=== PATIENT | male | born 1950 | race Caucasian/White ===

== ENCOUNTER 2022-08-26 06:26 | Day surgery (SDC) | payer MEDICARE, SELFPAY ==
--- NOTE | 2022-08-25 10:57 | P.CONAN_ITS ---
HPI - Anesthesia Eval Consult details Narrative: 71yo M for Upper Endoscopy and Colonoscopy FOR[facility]LY [facility] Past Medical History Medical History (Updated 08/25/22 @ 10:03 by Jenni Torres RN) GERD (gastroesophageal reflux disease) History of Meyer's esophagus History of COPD History of elevated PSA Hx of hyperlipidemia Normal esophagogastroduodenoscopy (EGD) Surgical History Surgical History (Updated 08/25/22 @ 10:03 by Jenni Torres RN) Hx of colonoscopy Hx of fusion of cervical spine Hx of knee surgery Social History Social History Patient Tobacco Use Status: Former Tobacco user Are you DNR?: No Advance Directives: No Advance Directives Information Provided: Yes Nutrition Risks: No Nutritional Risk Meds Allergies Allergy/AdvReac Type Severity Reaction Status Date / Time No Known Allergies Allergy Verified 08/25/22 09:51 Home Medications Medication Instructions Recorded Confirmed Last Taken Type Prilosec OTC 08/25/22 Unknown History Vesicare 08/25/22 08/25/22 Unknown History atorvastatin 10 mg tablet 10 mg PO DAILY 08/25/22 08/25/22 Unknown History dutasteride 0.5 mg capsule 0.5 mg PO DAILY 08/25/22 08/25/22 Unknown History piroxicam 20 mg capsule 20 mg PO DAILY 08/25/22 08/25/22 Unknown History tamsulosin 0.4 mg capsule 0.4 mg PO DAILY 08/25/22 08/25/22 Unknown History Fish Oil 08/26/22 08/16/22 History Exam Exam Date and Time: August 25, 2022 1057 Assessment and Plan Assessment Anesthesia Assessment: Chart Reviewed
[2022-08-26 06:45] VITALS: BP 139/81; PULSE 68; RESP 18; TEMP 36.1; O2SAT 97; BMI 25.5
[2022-08-26] MEDS: Lactated Ringers 1,000 ML 100 ML IVCONT (07:04)
--- NOTE | 2022-08-26 07:25 | MHC.SHP ---
Pre-Procedural Eval Section A Date of Service: 08/26/22 The patient is an INPATIENT: No Changes since office visit: No Cold of Flu in the past 2 weeks, No New Medical Problems, No Changes in Medication and No Patient answered all questions The History & Physical has been completed within 30 days and I have reviewed it.: Yes Section B Chief Complaint: screening for malignant neoplasm, dysphagia Allergies: Allergies Allergy/AdvReac Type Severity Reaction Status Date / Time No Known Allergies Allergy Verified 08/25/22 09:51 Plan I have reviewed the history and physical and performed a pertinent physical examination on my patient. No changes have occurred unless specified. Time Spent With Patient Time: Total time managing care of this patient today ____ minutes.
--- NOTE | 2022-08-26 07:51 | P.CONAN_ITS ---
HPI - Anesthesia Eval Consult details Narrative: EGD and colon for screening REPLACED BY [facility] Past Medical History Medical History (Updated 08/25/22 @ 10:03 by Jenni Torres RN) GERD (gastroesophageal reflux disease) History of Meyer's esophagus History of COPD History of elevated PSA Hx of hyperlipidemia Normal esophagogastroduodenoscopy (EGD) Family History Family history of problems with anesthesia: No Surgical History Surgical History (Updated 08/25/22 @ 10:03 by Jenni Torres RN) Hx of colonoscopy Hx of fusion of cervical spine Hx of knee surgery History of Problems with Anesthesia: No Social History Social History Patient Tobacco Use Status: Former Tobacco user Are you DNR?: No Advance Directives: No Advance Directives Information Provided: Yes Nutrition Risks: No Nutritional Risk Meds Allergies Allergy/AdvReac Type Severity Reaction Status Date / Time No Known Allergies Allergy Verified 08/25/22 09:51 Active Medications: Current Medications Albuterol Sulfate (Albuterol Sulfate (0.083%) 2.5 Mg/3 Ml Vial.Neb) 2.5 mg INHALE ONCE PRN PRN Reason: Shortness of Breath/Wheezing Lactated Ringer's (Lr) 1,000 mls @ 100 mls/hr IVCONT .Q10H CARLOS Last Admin: 08/26/22 07:04 Dose: 100 mls/hr Home Medications Medication Instructions Recorded Confirmed Last Taken Type Prilosec OTC 08/25/22 Unknown History Vesicare 08/25/22 08/25/22 Unknown History atorvastatin 10 mg tablet 10 mg PO DAILY 08/25/22 08/25/22 Unknown History dutasteride 0.5 mg capsule 0.5 mg PO DAILY 08/25/22 08/25/22 Unknown History piroxicam 20 mg capsule 20 mg PO DAILY 08/25/22 08/25/22 Unknown History tamsulosin 0.4 mg capsule 0.4 mg PO DAILY 08/25/22 08/25/22 Unknown History Fish Oil 08/26/22 08/16/22 History Exam Exam Date and Time: August 26, 2022 0751 Height,Weight and Vital Signs: Height 6 ft Weight 85.275 kg Last Vital Signs Temp 97 F 08/26/22 06:45 Pulse 68 08/26/22 06:45 Resp 18 08/26/22 06:45 BP 139/81 08/26/22 06:45 Pulse Ox 97 08/26/22 06:45 O2 Del Method Room Air 08/26/22 06:45 Airway Mallampati Class: II TM Dist: >3cm Neck ROM: Full Loose/Missing/Broken Teeth: No Heart: rr Lungs: cta Assessment and Plan Assessment Anesthesia Assessment: Anesthesia Plan Discussed and Chart Reviewed Final Anesthetic Review Family History of Problems with Anesthesia: No History of Problems with Anesthesia: No NPO: Yes ASA Class: II Final Preanesthetic Review: No Changes in Pt Med Stat, Meds/Allgs Chart Reviewed, Consent Obtained/Reviewed and Anes Risks/Benef Reviewed Patient Risk: Low Procedure Risk: Low Anesthetic Plan Anesthetic Plan: MAC: Disposition: Standard PACU
[2022-08-26 08:19] VITALS: BP 98/50; PULSE 65; RESP 18; TEMP 36.4; O2SAT 98
[2022-08-26 08:34] VITALS: BP 138/74; PULSE 61; RESP 18; TEMP 36.4; O2SAT 98
--- NOTE | 2022-08-26 08:36 | OP_ITS ---
DATE OF SERVICE: 08/26/2022 SURGEON: Sebastien Nelson MD INDICATIONS: 1. Dysphagia. 2. Colon cancer screening. PREOPERATIVE DIAGNOSIS: POSTOPERATIVE DIAGNOSIS: PROCEDURE PERFORMED: ESTIMATED BLOOD LOSS: COMPLICATIONS: ANESTHESIA: Monitored anesthesia care. ASSISTANTS: SPECIMENS: PROCEDURES PERFORMED: Upper endoscopy with biopsy, colonoscopy to the terminal ileum with snare polypectomy and biopsy. DESCRIPTION OF PROCEDURE: A history and physical were performed. The risks and benefits of the procedure were explained to the patient. Informed consent was obtained. The patient was placed in the left lateral decubitus position. The Olympus video gastroscope was introduced to the esophagus, stomach, and duodenum. Examination was performed, and the scope was removed. He tolerated the procedure well. He was repositioned for colonoscopy. A digital rectal exam was performed and was found to be normal. The Olympus pediatric video colonoscope was introduced into the rectum and advanced to the cecum without difficulty. The cecum was identified by transillumination, palpation, and identification of ileocecal valve. Examination was performed and the scope was removed. He tolerated both procedures well and was returned to recovery in stable condition. FINDINGS: Upper endoscopy: 1. Esophagus: The esophagus showed an irregular EG junction, consistent with gastroesophageal reflux disease. There was no esophagitis. Biopsies were obtained from the EG junction. There was no stricture or narrowing. 2. Stomach: Showed no evidence of masses, ulcers, or polyps. Antral biopsies were obtained to rule out H. pylori. 3. Duodenum: The bulb and 2nd portion were normal. Colonoscopy: The terminal ileum was examined and appeared normal. The visualized colonic mucosa was normal. There were 2 polyps identified, which were removed with a cold snare and biopsy forceps. These were located at 40 cm and at 15 cm. No other polyps were identified. There was mild diverticulosis. The quality of the prep was good. Retroflexed examination showed moderately large internal hemorrhoids. IMPRESSION: 1. Gastroesophageal reflux disease. 2. Dysphagia. 3. Colon polyps. RECOMMENDATIONS: Follow up the biopsy results. MD BLAYNE Ramos/VIKAS / [id number]
== END 2022-08-26 09:00 | disposition home or self-care (01) ==
PROVIDERS: PCP Family Medicine; Visit Provider Internal Medicine Gastroenterology
PROC: (CPT 45385; principal; 2022-08-26 07:30)
DX: Z12.11 Encounter for screening for malignant neoplasm of colon (principal); K63.5 Polyp of colon; R13.19 Other dysphagia; K21.9 Gastro-esophageal reflux disease without esophagitis; J44.9 Chronic obstructive pulmonary disease, unspecified; Z79.899 Other long term (current) drug therapy
CPT/HCPCS: 45385; 43239; 88305; 88342

== ENCOUNTER 2023-08-19 12:14 | Day surgery (SDC) | payer MEDICARE, SELFPAY ==
[2023-08-17 16:23] VITALS: BMI 22.4
--- NOTE | 2023-08-18 09:32 | P.CONAN_ITS ---
Documented by User: Sabina Rojas NP 08/18/23 09:32 HPI - Anesthesia Eval Consult details Narrative: 72yo M for Colonoscopy FOR[facility]LY [facility] Past Medical History Medical History Hx of hyperlipidemia History of Meyer's esophagus Normal esophagogastroduodenoscopy (EGD) GERD (gastroesophageal reflux disease) History of COPD History of elevated PSA Family History Family history of problems with anesthesia: No Surgical History Surgical History History of esophagogastroduodenoscopy (EGD) (08/26/22) Hx of knee surgery Hx of fusion of cervical spine Hx of colonoscopy History of Problems with Anesthesia: No Social History Social History (Updated 08/17/23 @ 16:23 by Brianda Wong RN) Household Members: Spouse Housing: House Are you a primary child care education coordinator to a significant other at home: No Do you presently have visiting nurse or other home services: No Patient Tobacco Use Status: Former Tobacco user Quit Date: 2015 Tobacco use type: Cigarette Meds Allergies Allergy/AdvReac Type Severity Reaction Status Date / Time No Known Allergies Allergy Verified 08/17/23 16:18 Home Medications ?Medication ?Instructions ?Recorded ?Confirmed ?Last Taken ?Type atorvastatin 10 mg tablet 10 mg PO DAILY 08/25/22 08/17/23 Unknown History dutasteride 0.5 mg capsule 0.5 mg PO DAILY 08/25/22 08/17/23 Unknown History tamsulosin 0.4 mg capsule 0.4 mg PO DAILY 08/25/22 08/17/23 Unknown History Fish Oil 08/26/22 08/12/23 History omeprazole 20 mg capsule,delayed 20 mg PO DAILY 08/17/23 08/17/23 Unknown History release turmeric 400 mg capsule mg PO 08/17/23 08/17/23 Unknown History Exam Height,Weight and Vital Signs: Height 6 ft 1 in Weight 77.111 kg Assessment and Plan Assessment Anesthesia Assessment: Chart Reviewed Final Anesthetic Review Family History of Problems with Anesthesia: No History of Problems with Anesthesia: No Documented by User: Hector Rayo MD 08/19/23 13:57 PMFSH Past Medical History Medical History Hx of hyperlipidemia History of Meyer's esophagus Normal esophagogastroduodenoscopy (EGD) GERD (gastroesophageal reflux disease) History of COPD History of elevated PSA Surgical History Surgical History History of esophagogastroduodenoscopy (EGD) (08/26/22) Hx of knee surgery Hx of fusion of cervical spine Hx of colonoscopy Social History Social History (Updated 08/17/23 @ 16:23 by Brianda Wong RN) Household Members: Spouse Housing: House Are you a primary child care education coordinator to a significant other at home: No Do you presently have visiting nurse or other home services: No Patient Tobacco Use Status: Former Tobacco user Quit Date: 2015 Tobacco use type: Cigarette Meds Allergies Allergy/AdvReac Type Severity Reaction Status Date / Time No Known Allergies Allergy Verified 08/17/23 16:18 Home Medications ?Medication ?Instructions ?Recorded ?Confirmed ?Last Taken ?Type atorvastatin 10 mg tablet 10 mg PO DAILY 08/25/22 08/17/23 Unknown History dutasteride 0.5 mg capsule 0.5 mg PO DAILY 08/25/22 08/17/23 Unknown History tamsulosin 0.4 mg capsule 0.4 mg PO DAILY 08/25/22 08/17/23 Unknown History Fish Oil 08/26/22 08/12/23 History omeprazole 20 mg capsule,delayed 20 mg PO DAILY 08/17/23 08/17/23 Unknown History release turmeric 400 mg capsule mg PO 08/17/23 08/17/23 Unknown History Exam Airway Mallampati Class: I TM Dist: >3cm Neck ROM: Full Loose/Missing/Broken Teeth: No Heart: ok Lungs: ok. Lung cancer. Assessment and Plan Assessment Anesthesia Assessment: Anesthesia Plan Discussed Final Anesthetic Review NPO: Yes ASA Class: III Final Preanesthetic Review: No Changes in Pt Med Stat, Meds/Allgs Chart Reviewed, Consent Obtained/Reviewed and Anes Risks/Benef Reviewed Patient Risk: Intermediate Procedure Risk: Low Anesthetic Plan Anesthetic Plan: MAC: and Agree w/ Assess. and Plan Disposition: Standard PACU
[2023-08-19 12:58] VITALS: BP 130/88; PULSE 90; RESP 20; TEMP 531.9; TEMP 989.4; O2SAT 98
[2023-08-19 13:04] VITALS: BMI 23.2
[2023-08-19] MEDS: Lactated Ringers 1,000 ML 100 ML IVCONT (13:12)
--- NOTE | 2023-08-19 13:43 | MHC.SHP ---
Pre-Procedural Eval Section A - 24 Hr Update-Section A only Date of Service: 08/19/23 The patient is an INPATIENT: No Changes since office visit: No Cold of Flu in the past 2 weeks, No New Medical Problems, No Changes in Medication and No Patient answered all questions The patient has been examined within 24 hours of the surgical procedure. The History & Physical has been completed within 30 days and I have reviewed it.: Yes Section B - Complete if H&P > 30 days Chief Complaint: Abnormal findings on diagnostic imaging of other p Allergies: Allergies Allergy/AdvReac Type Severity Reaction Status Date / Time No Known Allergies Allergy Verified 08/17/23 16:18 Plan I have reviewed the history and physical and performed a pertinent physical examination on my patient. No changes have occurred unless specified. Time Spent With Patient Time: Total time managing care of this patient today ____ minutes.
--- NOTE | 2023-08-19 13:43 | MHC.SHP ---
Pre-Procedural Eval Section A - 24 Hr Update-Section A only Date of Service: 08/19/23 Section B - Complete if H&P > 30 days Chief Complaint: Abnormal findings on diagnostic imaging of other p Details of Present Illness: see H&P , positive pet/ct scan in colon Relevant Family History (Specify if Yes): No Relevant Social History: None Present Medications: see Short Stay Collaborative assessment Medical History: No relevant PMH History of Previous Operations: No relevant previous surgery Allergies: Allergies Allergy/AdvReac Type Severity Reaction Status Date / Time No Known Allergies Allergy Verified 08/17/23 16:18 Review of Systems Sugical H&P ROS: Negative: Constitution, Cardiovascular, Respiratory, Neurological, Psychiatric, Hem-Onc, Allergic/Immunologic, Gastrointestinal, Genitourinary, Musculoskeletal, Integumentary, Endocrine and Eyes/Ears/Nose/Throat Exam Surgical H&P Exam: Normal: HEENT, Normal: Heart, Normal: Lungs, Normal: Extremities, Normal: Abdomen, Normal: Skin and Normal: Neurological Plan Diagnosis/Plan: Unchanged I have reviewed the history and physical and performed a pertinent physical examination on my patient. No changes have occurred unless specified. Time Spent With Patient Time: Total time managing care of this patient today ____ minutes.
[2023-08-19 14:16] VITALS: BP 107/67; PULSE 91; RESP 15; TEMP 36.4; O2SAT 94
[2023-08-19 14:31] VITALS: BP 109/71; PULSE 82; RESP 14; O2SAT 98
[2023-08-19 14:46] VITALS: BP 118/75; PULSE 83; RESP 16; TEMP 36.2; O2SAT 99
--- NOTE | 2023-08-19 15:11 | OP_ITS ---
DATE OF SERVICE: 08/19/2023 SURGEON: Sebastien Nelson MD INDICATIONS: Abnormal PET scan of the sigmoid colon. PREOPERATIVE DIAGNOSIS: POSTOPERATIVE DIAGNOSIS: PROCEDURE PERFORMED: Colonoscopy to the terminal ileum. ESTIMATED BLOOD LOSS: COMPLICATIONS: ANESTHESIA: Monitored anesthesia care. ASSISTANTS: SPECIMENS: DESCRIPTION OF PROCEDURE: A history and physical was performed. The risks and benefits of the procedure were explained to the patient and informed consent was obtained. The patient was placed in the left lateral decubitus position. A digital rectal exam was performed and was found to be normal. The Olympus pediatric video colonoscope was introduced into the rectum and advanced to the cecum. The cecum was identified by transillumination, palpation, and identification of ileocecal valve. Examination was performed and the scope was removed. He tolerated the procedure well, returned to recovery area in stable condition. FINDINGS: The terminal ileum was normal. The visualized colonic mucosa was normal. The quality of the prep was good. No suspicious lesions were identified. In the sigmoid, there was mild sigmoid diverticulosis. Careful examination and attention was paid to the sigmoid colon, which had been abnormal on the PET/CT and no abnormalities or signs of malignancy were identified in this area. Retroflexed examination showed moderate-sized internal hemorrhoids. IMPRESSION: Normal colonoscopy. RECOMMENDATIONS: 1. As needed. 2. Repeat colonoscopy is recommended in 10 years for average-risk individuals. MD BLAYNE Ramos/VIKAS / [id number]
== END 2023-08-19 15:34 | disposition home or self-care (01) ==
PROVIDERS: PCP Family Medicine; Visit Provider Internal Medicine Gastroenterology
PROC: 0DJD8ZZ Inspection of Lower Intestinal Tract, Via Natural or Artificial Opening Endoscopic (ICD-10-PCS; CPT 45378; principal; 2023-08-19 13:50)
DX: R93.3 Abnormal findings on diagnostic imaging of other parts of digestive tract (principal); K57.30 Diverticulosis of large intestine without perforation or abscess without bleeding; K64.8 Other hemorrhoids
CPT/HCPCS: 45378; J2250; J2704